=== PATIENT | male | born 2005 | race Caucasian/White ===

== ENCOUNTER → 2023-11-15 10:06 | Outpatient (CLI) | payer OTHER, SELFPAY ==
--- NOTE | 2023-11-15 15:10 | DI.RAD_ITS ---
Exam(s) XR SACROILIAC JOINTS EXAM: XR SACROILIAC JOINTSzz CLINICAL HISTORY: LOW BACK PAIN,? SACROILITIS, ? BONY EROSIONS,m54.50,g89.29. TECHNIQUE: 2D digital imaging was performed. Four views COMPARISON: No exams were available for comparison FINDINGS: Bones: No fracture is present. No bony destructive lesion is seen. Alignment is satisfactory. SI Joints: No fusion, erosions or sclerosis is seen. The hip joints are maintained. Pubic symphysis is unremarkable. Soft Tissue: Normal. IMPRESSION: Normal radiographs of the SI Joints. DATA REPOSITORY: RADIATION DOSE DELIVERED:
== END ==
PROVIDERS: Visit Provider Internal Medicine Rheumatology
DX: G89.29 Other chronic pain (principal)
CPT/HCPCS: 72202

== ENCOUNTER 2023-12-03 15:12 | Outpatient (REF) | payer OTHER, SELFPAY | END 2023-12-03 15:13 | disposition home or self-care (01) | LOC: LBN 15:12 | PROVIDERS: Visit Provider Nurse Practitioner Family | DX: N39.0 Urinary tract infection, site not specified (principal); R30.0 Dysuria | CPT/HCPCS: 87102; 87206 ==

== ENCOUNTER 2024-06-19 21:44 | Outpatient (REF) | payer OTHER, SELFPAY ==
[2024-06-19 22:22] LABS: Bilirubin Negative (Negative); Blood Negative (Negative); Clarity Clear (Clear); Glucose Negative (Negative); Ketones Negative (Negative); Leukocyte Esterase Negative (Negative); Nitrite Negative (Negative); Urobilinogen 0.2 mg/dL (Up to 0.2)
== END 2024-06-19 21:45 | disposition home or self-care (01) ==
LOC: LBN 21:44
PROVIDERS: PCP Nurse Practitioner Family; Visit Provider Nurse Practitioner Family
DX: N39.0 Urinary tract infection, site not specified (principal); N45.1 Epididymitis; N50.811 Right testicular pain
CPT/HCPCS: 81003

== ENCOUNTER 2025-06-22 19:52 | Outpatient (REF) | payer OTHER, SELFPAY ==
[2025-06-25 13:14] LABS: Chlamydia Result Negative (Negative); GC Result Negative (Negative)
== END 2025-06-22 19:53 | disposition home or self-care (01) ==
LOC: LBN 19:52
PROVIDERS: PCP Nurse Practitioner Family; Visit Provider Nurse Practitioner Acute Care
DX: N39.0 Urinary tract infection, site not specified (principal); Z11.3 Encounter for screening for infections with a predominantly sexual mode of transmission
CPT/HCPCS: 87491; 87591; 87086

== ENCOUNTER 2025-06-23 09:36 | Outpatient (REF) | payer SELFPAY ==
[2025-06-25 13:14] LABS: Chlamydia Result Negative (Negative); GC Result Negative (Negative)
== END 2025-06-23 09:37 | disposition home or self-care (01) ==
LOC: LBN 09:36
PROVIDERS: PCP Nurse Practitioner Family; Visit Provider Nurse Practitioner Acute Care
DX: Z11.3 Encounter for screening for infections with a predominantly sexual mode of transmission (principal)
CPT/HCPCS: 87491; 87591